=== PATIENT | male | born 1995 | race Two or more races ===

== ENCOUNTER 2023-02-12 14:55 | Outpatient (CLI) | payer OTHER | END 2023-02-12 15:00 | disposition home or self-care (01) | LOC: LAB 14:55 | PROVIDERS: ATTEND Preventive Medicine Occupational Medicine | DX: U07.1 COVID-19 (principal) ==

== ENCOUNTER → 2023-03-01 | Emergency (ER) | payer OTHER ==
[~2023-03-01] VITALS: Ht 177.8 cm; Wt 95.3 kg
== END | disposition home or self-care (01) ==
LOC: ER 23:22
DX: K52.89 Other specified noninfective gastroenteritis and colitis (principal)

== ENCOUNTER 2023-05-21 18:38 | Emergency (ER) | payer OTHER ==
[~2023-05-21] VITALS: Ht 172.7 cm; Wt 90.7 kg
[2023-05-21] MEDS ORDERED: SYNTHROID75 MCG (19:21)
== END 2023-05-21 20:28 | disposition home or self-care (01) ==
LOC: ER 18:38
DX: S61.441A Puncture wound with foreign body of right hand, initial encounter (principal); Y93.F9 Activity, other caregiving; Y92.238 Other place in hospital as the place of occurrence of the external cause; W26.8XXA Contact with other sharp object(s), not elsewhere classified, initial encounter